=== PATIENT | female | born 1965 | race Caucasian/White ===

== ENCOUNTER → 2017-10-24 | Outpatient (CLI) | payer OTHER ==
[~2017-10-24] MED LIST: ALLEGRA-D 24 H1 EACH PO; Duoneb 2.5-0.5 Mg/3 INH; FLONASE 0.05%50 MCG NASAL; FLOVENT HFA 4444 MCG INH; LEVAQUIN 500 M500 M2 PO; LEVAQUIN 500 M500 MG PO; MEDROLDOSEPACK PO; MUCINEX1200 MG PO; NOHOMEMEDICATIONS; PREDNISONE 10 M10 MG PO; PREDNISONE50 MG PO; PROAIR HFA8.5 GM IH; TESSALON200 MG PO; VENTOLIN HFA 1818 GM INH
== END ==
LOC: M.RAD 14:43
DX: R05 Cough (principal); R06.2 Wheezing; I48.91 Unspecified atrial fibrillation

== ENCOUNTER 2017-11-19 06:28 | Emergency (ER) | payer OTHER ==
[~2017-11-19] VITALS: Ht 165.1 cm; Wt 49.9 kg
[~2017-11-19 06:28] MED LIST changes: -ALLEGRA-D 24 H1 EACH PO; -Duoneb 2.5-0.5 Mg/3 INH; -FLONASE 0.05%50 MCG NASAL; -FLOVENT HFA 4444 MCG INH; -LEVAQUIN 500 M500 M2 PO; -MEDROLDOSEPACK PO; -MUCINEX1200 MG PO; -PREDNISONE 10 M10 MG PO; -VENTOLIN HFA 1818 GM INH
[2017-11-19] MEDS ORDERED: FLONASE 0.05%50 MCG NASAL (06:37)
[2017-11-19] MEDS ORDERED: ALLEGRA-D 24 H1 EACH PO (06:37)
[2017-11-19 07:55] LABS: ABSOLUTE BASOPHILS 0.1 thou/uL (0.0-0.2); ABSOLUTE EOSINOPHILS 0.7 thou/uL (0.0-0.7); ABSOLUTE LYMPHOCYTES 1.5 thou/uL (0.8-5.3); ABSOLUTE MONOCYTES 0.5 thou/uL (0.0-1.2); ABSOLUTE NEUTROPHILS 6.5 thou/uL (1.6-8.1); BASOPHILS 0.7 %; EOSINOPHILS 7.2 %; HEMATOCRIT 40.8 % (37.0-47.0); HEMOGLOBIN 13.4 gm/dL (12.0-15.0); LYMPHOCYTES 16.4 %; MCH 29.7 pg (26.0-34.0); MCHC 32.8 g/dL (28.0-37.0); MCV 90.3 fL (80.0-100.0); MONOCYTES 5.5 %; MPV 8.4 fl. (7.2-11.1); NUCLEATED RBCS 0 /100WBC; PLATELET COUNT* 223 thou/uL (150-400); POLYS 70.2 %; RBC 4.51 mil/uL (4.20-5.00); RDW-CV 14.6 % (10.5-14.5); WBC 9.2 thou/uL (4.0-11.0)
[2017-11-19] MEDS ORDERED: MEDROLDOSEPACK PO (08:18)
[2017-11-19 08:29] VITALS: BP 94/58
== END 2017-11-19 08:30 | disposition home or self-care (01) ==
LOC: M.ERS 06:28
PROVIDERS: Emergency Medicine
DX: J42 Unspecified chronic bronchitis (principal); F17.210 Nicotine dependence, cigarettes, uncomplicated; Z88.5 Allergy status to narcotic agent

== ENCOUNTER 2017-12-16 05:44 | Emergency (ER) | payer OTHER ==
[~2017-12-16] VITALS: Ht 165.1 cm; Wt 49.9 kg
[~2017-12-16 05:44] MED LIST changes: +ALLEGRA-D 24 H1 EACH PO; +FLONASE 0.05%50 MCG NASAL; +MEDROLDOSEPACK PO
[2017-12-16] MEDS ORDERED: Duoneb 2.5-0.5 Mg/3 INH (05:53)
[2017-12-16] MEDS ORDERED: PREDNISONE50 MG PO (07:07)
[2017-12-16 07:43] VITALS: BP 122/62
== END 2017-12-16 07:44 | disposition home or self-care (01) ==
LOC: M.ERS 05:44
DX: J44.1 Chronic obstructive pulmonary disease with (acute) exacerbation (principal); F17.210 Nicotine dependence, cigarettes, uncomplicated; Z88.5 Allergy status to narcotic agent

== ENCOUNTER 2018-02-10 03:15 | Inpatient (IN) | payer OTHER ==
[~2018-02-10] VITALS: Ht 165.1 cm; Wt 51.7 kg
[~2018-02-10 03:15] MED LIST changes: +Duoneb 2.5-0.5 Mg/3 INH
[2018-02-10 03:18] VITALS: BP 127/80
[2018-02-10] MEDS ORDERED: MUCINEX1200 MG PO (03:23)
[2018-02-10 04:09] LABS: ABSOLUTE BASOPHILS 0.1 thou/uL (0.0-0.2); ABSOLUTE EOSINOPHILS 0.8 thou/uL (0.0-0.7); ABSOLUTE LYMPHOCYTES 4.3 thou/uL (0.8-5.3); ABSOLUTE MONOCYTES 0.8 thou/uL (0.0-1.2); ABSOLUTE NEUTROPHILS 5.9 thou/uL (1.6-8.1); BASOPHILS 0.8 %; EOSINOPHILS 6.5 %; HEMATOCRIT 44.2 % (37.0-47.0); HEMOGLOBIN 14.6 gm/dL (12.0-15.0); LYMPHOCYTES 36.1 %; MCH 30.1 pg (26.0-34.0); MCV 91.3 fL (80.0-100.0); MONOCYTES 6.8 %; MPV 8.1 fl. (7.2-11.1); NUCLEATED RBCS 0 /100WBC; PLATELET COUNT* 269 thou/uL (150-400); POLYS 49.8 %; RBC 4.84 mil/uL (4.20-5.00); RDW-CV 15.5 % (10.5-14.5); WBC 11.9 thou/uL (4.0-11.0)
[2018-02-10 04:29] LABS: ANION GAP 7 mmol/L (7-16); BUN 11 mg/dL (7-18); CALCIUM 8.4 mg/dL (8.5-10.1); CHLORIDE 105 mmol/L (98-107); CO2 26 mmol/L (21-32); CREATININE 0.7 mg/dL (0.6-1.3); GLUCOSE 109 mg/dL (70-99); POTASSIUM 3.6 mmol/L (3.5-5.1); SODIUM 138 mmol/L (136-145)
[2018-02-10 04:40] LABS: ALBUMIN 3.9 g/dL (3.4-5.0); ALKALINE PHOSPHATASE 72 U/L (46-116); NT-PRO BRAIN NAT PEPTIDE 35 pg/mL (<300); SGOT 16 U/L (15-37); SGPT 17 U/L (30-65); TOTAL BILIRUBIN 0.3 mg/dL (<0.1-1.0); TOTAL PROTEIN 8.3 g/dL (6.4-8.2); TROPONIN-I LEVEL <0.06 ng/mL (<0.06)
[2018-02-10 05:02] LABS: BE -2.2 mmol/L (-2 to +3); HCO3 23.5 mmol/L (22.0-26.0); PCO2 43.4 mmHg (35.0-45.0); pH 7.351 (7.340-7.450)
[2018-02-10 05:05] LABS: PO2 134.4 mmHg (75.0-100.0)
[2018-02-10 05:28] VITALS: BP 124/73
[2018-02-10 05:30] VITALS: BP 109/67
[2018-02-10 08:00] VITALS: BP 117/62
--- NOTE | 2018-02-10 10:31 | EKG ---
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: : 1965 Requested By: Natali Christina Order Number: [id number] MD: Onesimo Mccoy Measurements Intervals [place] Rate: 92 P: 85 [place]: 207 QRS: 93 QRSD: 129 T: 35 QT: 360 QTc: 446 Interpretive Statements Sinus rhythm Prolonged [place] interval Biatrial enlargement Nonspecific intraventricular conduction delay Anterior infarct, old No previous ECG available for comparison Electronically Signed On 02-10-2018 10:30:52 CDT by Onesimo Mccoy [email or web address] <ELECTRONICALLY SIGNED> By: Onesimo Mccoy MD, [facility] 02/10/18 1030 0410 0410 Onesimo Mccoy MD, [facility] /EPI
[2018-02-10 12:00] VITALS: BP 107/58
[2018-02-10 20:00] VITALS: BP 102/58
[2018-02-11] VITALS: BP 108/61
[2018-02-11 04:00] VITALS: BP 106/63
[2018-02-11 04:58] LABS: HEMATOCRIT 38.3 % (37.0-47.0); MCH 30.1 pg (26.0-34.0); MCV 91.3 fL (80.0-100.0); MPV 8.2 fl. (7.2-11.1); RBC 4.19 mil/uL (4.20-5.00); WBC 11.8 thou/uL (4.0-11.0)
[2018-02-11 05:15] LABS: HEMOGLOBIN 12.6 gm/dL (12.0-15.0)
[2018-02-11 05:29] LABS: CALCIUM 9.1 mg/dL (8.5-10.1); CREATININE 0.6 mg/dL (0.6-1.3); MAGNESIUM 1.9 mg/dL (1.8-2.4)
[2018-02-11 08:00] VITALS: BP 106/58
[2018-02-11] MEDS ORDERED: FLOVENT HFA 4444 MCG INH (08:45)
[2018-02-11] MEDS ORDERED: VENTOLIN HFA 1818 GM INH (08:45)
[2018-02-11] MEDS ORDERED: PREDNISONE 10 M10 MG PO (08:45)
[2018-02-11] MEDS ORDERED: LEVAQUIN 500 M500 M2 PO (08:45)
[2018-02-11 12:27] VITALS: BP 106/58
[2018-02-11 12:36] VITALS: BP 106/58
== END 2018-02-11 14:20 | disposition home or self-care (01) | DRG 189 ==
LOC: M.ERS 03:15 → M.TBA-ER 04:13 → M.2W 04:13
PROVIDERS: Emergency Medicine; Internal Medicine; ADMIT Family Medicine
PROC: 5A09357 Assistance with Respiratory Ventilation, Less than 24 Consecutive Hours, Continuous Positive Airway Pressure (ICD-10-PCS; principal; 2018-02-10)
DX: J96.01 Acute respiratory failure with hypoxia (principal); J44.1 Chronic obstructive pulmonary disease with (acute) exacerbation; R65.10 Systemic inflammatory response syndrome (SIRS) of non-infectious origin without acute organ dysfunction; Z88.6 Allergy status to analgesic agent; F17.210 Nicotine dependence, cigarettes, uncomplicated; Z79.899 Other long term (current) drug therapy

== ENCOUNTER 2018-02-14 17:28 | Emergency (ER) | payer OTHER ==
[~2018-02-14] VITALS: Ht 165.1 cm; Wt 52.2 kg
[~2018-02-14 17:28] MED LIST changes: +FLOVENT HFA 4444 MCG INH; +LEVAQUIN 500 M500 M2 PO; +MUCINEX1200 MG PO; +PREDNISONE 10 M10 MG PO; +VENTOLIN HFA 1818 GM INH
[2018-02-14 18:03] LABS: HEMATOCRIT 44.3 % (37.0-47.0); HEMOGLOBIN 14.8 gm/dL (12.0-15.0); MCHC 33.4 g/dL (28.0-37.0); MCV 89.7 fL (80.0-100.0); MPV 7.8 fl. (7.2-11.1); NUCLEATED RBCS 0 /100WBC; PLATELET COUNT* 280 thou/uL (150-400); RBC 4.94 mil/uL (4.20-5.00); RDW-CV 15.6 % (10.5-14.5); WBC 10.5 thou/uL (4.0-11.0)
[2018-02-14 18:16] LABS: ANION GAP 4 mmol/L (7-16); BUN 20 mg/dL (7-18); CALCIUM 8.2 mg/dL (8.5-10.1); CHLORIDE 104 mmol/L (98-107); CO2 29 mmol/L (21-32); CREATININE 0.8 mg/dL (0.6-1.3); GLUCOSE 123 mg/dL (70-99); POTASSIUM 4.2 mmol/L (3.5-5.1); SODIUM 137 mmol/L (136-145)
[2018-02-14 18:27] LABS: ABSOLUTE LYMPHOCYTES 0.8 thou/uL (0.8-5.3); ABSOLUTE MONOCYTES 0.7 thou/uL (0.0-1.2); ABSOLUTE NEUTROPHILS 8.9 thou/uL (1.6-8.1)
[2018-02-14 18:28] LABS: PLATELET ESTIMATE ADEQUATE
[2018-02-14 18:31] LABS: ALBUMIN 3.4 g/dL (3.4-5.0); ALKALINE PHOSPHATASE 57 U/L (46-116); LIPASE 108 U/L (73-393); NT-PRO BRAIN NAT PEPTIDE 389 pg/mL (<300); SGOT 9 U/L (15-37); SGPT 21 U/L (30-65); TOTAL BILIRUBIN 0.3 mg/dL (<0.1-1.0); TOTAL PROTEIN 7.2 g/dL (6.4-8.2); TROPONIN-I LEVEL <0.06 ng/mL (<0.06)
[2018-02-14 20:32] VITALS: BP 113/73
--- NOTE | 2018-02-15 14:39 | EKG ---
[place] [address] ELECTROCARDIOGRAM REPORT Name: JENNIE COLEMAN Room: [facility]#: [id number] Admission: 02/14/18 Attend Phys: Discharge: 02/14/18 Date of : 69 Report #: [id number] THIS REPORT FOR: //name// [facility] ED Test Date: 2018-02-14 Test Time: 19:49:41 Pat Name: JENNIE COLEMAN Department: Room: Gender: F Power Builder Developer: JOSIE : 1965 Requested By: Rahat Alexis Order Number: [id number] MD: Alcides Velazquez Measurements Intervals [place] Rate: 61 P: 77 [place]: 186 QRS: 85 QRSD: 88 T: 66 QT: 394 QTc: 397 Interpretive Statements Sinus rhythm Anterior infarct, old Compared to ECG 02/10/2018 04:10:10 First degree AV block no longer present Atrial abnormality no longer present Intraventricular conduction delay no longer present Myocardial infarct finding still present Electronically Signed On 02-15-2018 14:39:32 CDT by Alcides Velazquez [email or web address] <ELECTRONICALLY SIGNED> By: Alcides Velazquez MD, [facility] 02/15/18 1439 48 48 Alcides Velazquez MD, [facility] /EPI
--- NOTE | 2018-02-15 14:39 | EKG ---
[place] [address] ELECTROCARDIOGRAM REPORT Name: JENNIE COLEMAN Room: [facility]#: [id number] Admission: 02/14/18 Attend Phys: Discharge: 02/14/18 Date of : 69 Report #: [id number] THIS REPORT FOR: //name// [facility] ED Test Date: 2018-02-14 Test Time: 17:32:32 Pat Name: JENNIE COLEMAN Department: Room: Gender: F Fire Lieutenant: SAMUEL : 1965 Requested By: Chase Patel Order Number: [id number] MD: Alcides Velazquez Measurements Intervals [place] Rate: 83 P: [place]: QRS: 84 QRSD: 82 T: 65 QT: 350 QTc: 412 Interpretive Statements sinus rhythm Anterior infarct, old probable right atrial enlargement possible anterior scar Electronically Signed On 02-15-2018 14:39:10 CDT by Alcides Velazquez [email or web address] <ELECTRONICALLY SIGNED> By: Alcides Velazquez MD, [facility] 02/15/18 1439 1732 1732 Alcides Velazquez MD, [facility] /EPI
== END 2018-02-14 20:30 | disposition home or self-care (01) ==
LOC: M.ERS 17:28
PROVIDERS: Emergency Medicine Emergency Medical Services
DX: R00.2 Palpitations (principal); J44.9 Chronic obstructive pulmonary disease, unspecified; F17.210 Nicotine dependence, cigarettes, uncomplicated; Z98.890 Other specified postprocedural states; Z88.5 Allergy status to narcotic agent

== ENCOUNTER 2018-05-14 03:32 | Inpatient (IN) | payer OTHER ==
[~2018-05-14] VITALS: Ht 165.1 cm; Wt 53.5 kg
[2018-05-14 03:35] VITALS: BP 139/47
--- NOTE | 2018-05-14 03:45 | NUR ---
RT HERE FOR BREATHING TREATMENT
--- NOTE | 2018-05-14 04:19 | NUR ---
#2 BREATHING TREATMENT IN PROGRESS
[2018-05-14 06:11] LABS: HEMATOCRIT 42.9 % (37.0-47.0); HEMOGLOBIN 13.9 gm/dL (12.0-15.0); MCH 30.2 pg (26.0-34.0); MCHC 32.5 g/dL (28.0-37.0); MPV 8.6 fl. (7.2-11.1); NUCLEATED RBCS 0 /100WBC; PLATELET COUNT* 221 thou/uL (150-400); RBC 4.61 mil/uL (4.20-5.00); RDW-CV 13.8 % (10.5-14.5); WBC 12.9 thou/uL (4.0-11.0)
[2018-05-14 06:41] LABS: ALBUMIN 3.8 g/dL (3.4-5.0); CALCIUM 8.7 mg/dL (8.5-10.1); CREATININE 0.7 mg/dL (0.6-1.3); POTASSIUM 3.9 mmol/L (3.5-5.1); TOTAL BILIRUBIN 0.2 mg/dL (<0.1-1.0); TOTAL PROTEIN 7.6 g/dL (6.4-8.2)
[2018-05-14 07:03] LABS: ABSOLUTE EOSINOPHILS 0.1 thou/uL (0.0-0.7); ABSOLUTE LYMPHOCYTES 0.8 thou/uL (0.8-5.3); ABSOLUTE MONOCYTES 0.3 thou/uL (0.0-1.2); ABSOLUTE NEUTROPHILS 11.7 thou/uL (1.6-8.1); ANISOCYTOSIS 1+; PLATELET ESTIMATE ADEQUATE; POIKILOCYTOSIS 1+
[2018-05-14 07:45] VITALS: BP 95/60
--- NOTE | 2018-05-14 09:42 | NUR ---
ASSUMED PT CARE @ 0805. PT ORIENTED TO ROOM. VS STABLE. OXYGEN @ 3L/NC. PT DENIES PAIN. FALL CONTRACT SIGNED. NURSING TO CONTINUE TO MONITOR.
[2018-05-14 10:00] VITALS: BP 102/52
--- NOTE | 2018-05-14 11:43 | NUR ---
SW met pt to complete initial assessment, introduce self, and SW role. Pt alert, oriented, pleasant. Pt lives at home with her ; her is a deck supervisor and is often away traveling for work. Pt said she sometimes goes with him but also stays and watches her grandchildren. Pt is independent and active, she takes care of chickens and a dog. Pt has a nebulizer through [facility] but does not have oxygen at home. Pt has supportive sister and helpful neighbors. Pt does not have hx of or SNF. SW to continue to follow to assist with safe dc planning.
[2018-05-14 12:48] LABS: INFLUENZA A ANTIGEN None Detected (None Detect); INFLUENZA B ANTIGEN None Detected (None Detect)
[2018-05-14 15:00] LABS: BE 0.4 mmol/L (-2 to +3); HCO3 24.6 mmol/L (22.0-26.0); PCO2 38.4 mmHg (35.0-45.0); PO2 81.8 mmHg (75.0-100.0); pH 7.425 (7.340-7.450)
--- NOTE | 2018-05-14 15:28 | EKG ---
[place] [address] ELECTROCARDIOGRAM REPORT Name: JENNIE COLEMAN Room: [address] ADM IN M.R.#: [id number] Admission: 05/14/18 Attend Phys: Riley Abad MD Discharge: Date of : 69 Report #: [id number] THIS REPORT FOR: //name// [facility] ED Test Date: 2018-05-14 Test Time: 03:40:43 Pat Name: JENNIE COLEMAN Department: Room: [facility] Gender: F Supervisor Furnace Room: AMILCAR : 1965 Requested By: Natali Christina Order Number: [id number] MD: Hero Santizo Measurements Intervals [place] Rate: 90 P: 76 [place]: 219 QRS: 95 QRSD: 96 T: 51 QT: 369 QTc: 452 Interpretive Statements Sinus rhythm Prolonged [place] interval Biatrial enlargement Borderline right axis deviation Probable anteroseptal infarct, old Baseline wander in lead(s) V6 Compared to ECG 02/14/2018 19:49:41 First degree AV block now present Atrial abnormality now present Myocardial infarct finding still present Electronically Signed On 05-14-2018 15:28:07 LOBBY ATTENDANT by Hero Santizo [email or web address] <ELECTRONICALLY SIGNED> By: Hero Santizo MD, FACC 05/14/18 1528 0340 Hero Santizo MD, FAC /EPI
[2018-05-14 16:05] VITALS: BP 135/71
--- NOTE | 2018-05-14 19:45 | NUR ---
PT ALERT AND ORIENTED X 4. RECEIVED IVF BOLUS OF 1700MLS. OXYGEN @ 3 L/NC. LUNGS COARSE. NON-PRODUCTIVE COUGN. FLU SWAB OBTAINED AND SENT TO LAB. PT DENIES PAIN AND NAUSEA. HOURLY ROUNDS MAINTAINED. VS STABLE. UP INDEPENDENTLY WITH BRP. WILL USE CALL LIGHT FOR ASSISTANCE. CALL LIGHT WITHIN REACH.
[2018-05-15 00:03] VITALS: BP 119/71
[2018-05-15 04:19] LABS: HEMATOCRIT 39.4 % (37.0-47.0); MCH 30.6 pg (26.0-34.0); MCV 92.7 fL (80.0-100.0); MPV 8.6 fl. (7.2-11.1); RBC 4.24 mil/uL (4.20-5.00); WBC 13.8 thou/uL (4.0-11.0)
[2018-05-15 04:38] LABS: CALCIUM 8.7 mg/dL (8.5-10.1); CREATININE 0.7 mg/dL (0.6-1.3); MAGNESIUM 1.8 mg/dL (1.8-2.4); PHOSPHORUS* 4.8 mg/dL (2.5-4.9); POTASSIUM 4.1 mmol/L (3.5-5.1)
--- NOTE | 2018-05-15 06:29 | NUR ---
PATIENT SLEPT MOST OF THE NIGHT. IV REMAINS SALINE LOCKED. PATIENT IS ON OXYGEN AT 1L PER NASAL CANNULA. PATIENT HAD NO COMPLAINTS OF PAIN. WILL CONTINUE TO MONITOR.
[2018-05-15 08:05] VITALS: BP 102/48
[2018-05-15 17:06] VITALS: BP 101/62
--- NOTE | 2018-05-15 18:03 | NUR ---
PATIENT RESTING IN BED. PATIENT IS UP AD MICHOACANO IN ROOM. PATIENT DENIES ANY PAIN. PATIENT DENIES ANY TROUBLE BREATHING. OXYGEN IS ON AT 1L/NC. PATIENT HAS GOOD APPETITE. PATIENT DENIES ANY NEEDS AT THIS TIME. CALL LIGHT WITHIN REACH. WILL CONTINUE TO MONITOR.
[2018-05-15 23:56] VITALS: BP 131/80
[2018-05-16 03:49] LABS: HEMATOCRIT 40.9 % (37.0-47.0); HEMOGLOBIN 13.3 gm/dL (12.0-15.0); MCH 30.4 pg (26.0-34.0); MCHC 32.5 g/dL (28.0-37.0); MCV 93.5 fL (80.0-100.0); MPV 8.7 fl. (7.2-11.1); RBC 4.37 mil/uL (4.20-5.00); RDW-CV 13.8 % (10.5-14.5); WBC 11.2 thou/uL (4.0-11.0)
[2018-05-16 04:04] LABS: CALCIUM 8.8 mg/dL (8.5-10.1); CREATININE 0.6 mg/dL (0.6-1.3); POTASSIUM 4.7 mmol/L (3.5-5.1)
--- NOTE | 2018-05-16 05:52 | NUR ---
PATIENT SLEPT WELL DURING THIS SHIFT. PT UP AD MICHOACANO TO BATHROOM. PT IS ON ROOM AIR WITH SATS AT 97%. PT DENIES NEEDS AT THIS TIME. FREQUENTLY USED ITEMS AND CALL LIGHT WITHIN REACH. SIDERAILS UPX2. WILL CONTINUE TO MONITOR.
[2018-05-16 08:10] VITALS: BP 119/69
[2018-05-16] MEDS ORDERED: PREDNISONE 10 M10 M1 PO (10:18)
[2018-05-16] MEDS ORDERED: FLOVENT HFA 4444 MCG INH (10:18)
[2018-05-16] MEDS ORDERED: IPRAT-ALBUT 0.5-3 ML INH (10:18)
[2018-05-16] MEDS ORDERED: CIPROFLOXACIN500 MG PO (10:18)
[2018-05-16] MEDS ORDERED: NICOTINE TRANSD21 M1 TRANSDERM (10:18)
[2018-05-16] MEDS ORDERED: SINGULAIR 10 MG10 M1 PO (10:19)
[2018-05-16 10:24] VITALS: BP 119/69
--- NOTE | 2018-05-16 11:20 | NUR ---
PATIENT DISCHARGED TO HOME. DISCHARGE PAPERS REVIEWED AND SIGNED. PRESCRIPTIONS AND INFORMATION SHEETS GIVEN. IV REMOVED. PATIENT DENIES ANY FURTHER NEEDS. PATIENT TAKEN AMBULATORY TO EXIT. LEFT WITH SISTER.
== END 2018-05-16 11:20 | disposition home or self-care (01) | DRG 871 ==
LOC: M.ERS 03:32 → M.3W 04:58 → M.TBA-ER 04:58 → M.3W 07:52
PROVIDERS: Emergency Medicine; ADMIT Internal Medicine
DX: A41.9 Sepsis, unspecified organism (principal); J96.21 Acute and chronic respiratory failure with hypoxia; J44.1 Chronic obstructive pulmonary disease with (acute) exacerbation; R04.0 Epistaxis; I95.89 Other hypotension; F17.210 Nicotine dependence, cigarettes, uncomplicated; Z87.81 Personal history of (healed) traumatic fracture; Z79.51 Long term (current) use of inhaled steroids; Z79.899 Other long term (current) drug therapy; Z88.5 Allergy status to narcotic agent; Z28.21 Immunization not carried out because of patient refusal

== ENCOUNTER → 2018-05-21 | Outpatient (CLI) | payer OTHER ==
[~2018-05-21] MED LIST changes: +CIPROFLOXACIN500 MG PO; +IPRAT-ALBUT 0.5-3 ML INH; +NICOTINE TRANSD21 M1 TRANSDERM; +PREDNISONE 10 M10 M1 PO; +SINGULAIR 10 MG10 M1 PO
--- NOTE | 2018-05-28 07:54 | PF ---
[address] [address] PULMONARY FUNCTION REPORT Name: JENNIE COLEMAN Handy Room: [facility]#: [id number] Admission: 05/21/18 Attend Phys: ROBI Magaña Discharge: Date of : 69 Report #: [id number] THIS REPORT FOR: //name// CC: Jie Santo DATE OF SERVICE: 05/21/2018 PRIMARY CARE PHYSICIAN: ROBI Joshi Spirometry demonstrates moderate obstructive defect. FEV1 is 2.2, FVC is 4.2 liters, ratio is moderately diminished at 53%. FEV1 is 77% of predicted. Mid flow rates are diminished to 23% of predicted and 60% of predicted. Lung volumes performed via plethysmography show moderate hyperinflation with increased RV to TLC and the RV is 145% of predicted. RV to TLC is down to 31%. TLC is elevated at 122% of predicted and resistance is upper limits of normal. Diffusion is down to 63% when corrected for alveolar volume. IMPRESSION: Abnormalities suggest moderate obstructive airways disease with no significant bronchodilator response. Hyperinflation is noted with increased residual volume and there is a diffusion defect with a mild decrease in diffusion to 63% of predicted. <ELECTRONICALLY SIGNED> By: Shane Montano MD 05/28/18 0754 1350 1845Asteven Montano MD /ladonna
== END ==
LOC: M.PUL 09:28
DX: R91.8 Other nonspecific abnormal finding of lung field (principal); R06.02 Shortness of breath; R06.2 Wheezing

== ENCOUNTER 2020-07-07 21:35 | Inpatient (IN) | payer OTHER ==
[~2020-07-07] VITALS: Ht 165.1 cm; Wt 54.4 kg
[2020-07-07 21:48] VITALS: BP 135/66
[2020-07-07 22:32] LABS: ABSOLUTE BASOPHILS 0.2 thou/uL (0.0-0.2); ABSOLUTE LYMPHOCYTES 3.2 thou/uL (0.8-5.3); ABSOLUTE MONOCYTES 0.6 thou/uL (0.0-1.2); ABSOLUTE NEUTROPHILS 7.3 thou/uL (1.6-8.1); BASOPHILS 1.3 %; EOSINOPHILS 8.4 %; HEMATOCRIT 46.4 % (37.0-47.0); HEMOGLOBIN 15.3 gm/dL (12.0-15.0); MCH 29.7 pg (26.0-34.0); MCHC 32.9 g/dL (28.0-37.0); MCV 90.4 fL (80.0-100.0); MONOCYTES 5.1 %; MPV 7.9 fl. (7.2-11.1); NUCLEATED RBCS 0 /100WBC; PLATELET COUNT* 268 thou/uL (150-400); POLYS 59.2 %; RBC 5.14 mil/uL (4.20-5.00); RDW-CV 15.2 % (10.5-14.5); WBC 12.4 thou/uL (4.0-11.0)
[2020-07-07 22:37] LABS: CALCIUM 9.3 mg/dL (8.5-10.1); CREATININE 0.7 mg/dL (0.6-1.3); POTASSIUM 3.7 mmol/L (3.5-5.1)
[2020-07-07 22:41] LABS: TOTAL BILIRUBIN 0.4 mg/dL (<0.1-1.0); TOTAL PROTEIN 8.1 g/dL (6.4-8.2)
[2020-07-08] VITALS (7 sets, daily range): BP systolic 98–126; BP diastolic 56–68
[2020-07-08] MEDS ORDERED: PULMICORT0.5 MG/2 M INH (00:15)
[2020-07-08] MEDS ORDERED: ALBUTEROL2.5 MG/31 INH (00:15)
--- NOTE | 2020-07-08 11:20 | EKG ---
[place] [address] ELECTROCARDIOGRAM REPORT Name: JENNIE COLEMAN Room: [address]R.#: [id number] Admission: 07/08/20 Attend Phys: Vinay Hendricks, Discharge: Date of : 69 Date of Service: 07/07/202200 Report #: [id number] THIS REPORT FOR: //name// [facility] ED Test Date: 2020-07-07 Test Time: 22:01:26 Pat Name: JENNIE COLEMAN Department: Room: [facility] Gender: F Tour Director: SIRENA WADEB: 1965 Requested By: Natali Christina Order Number: [id number] MD: Onesimo Mccoy Measurements Intervals [place] Rate: 102 P: 87 [place]: 215 QRS: 85 QRSD: 99 T: 55 QT: 329 QTc: 429 Interpretive Statements Sinus tachycardia Prolonged [place] interval Biatrial enlargement Anteroseptal infarct, age indeterminate Compared to ECG 05/14/2018 03:40:43 Sinus rhythm no longer present Myocardial infarct finding still present Electronically Signed On 07-08-2020 11:19:56 EMBOSSING CALENDER OPERATOR by Onesimo Mccoy [email or web address] <ELECTRONICALLY SIGNED> By: Onesimo Mccoy MD, FACC 07/08/20 1119 00 00 Onesimo Mccoy MD, FAC /EPI
[2020-07-08 14:28] LABS: HEMATOCRIT 43.4 % (37.0-47.0); HEMOGLOBIN 14.5 gm/dL (12.0-15.0); MCHC 33.3 g/dL (28.0-37.0); MPV 7.9 fl. (7.2-11.1); NUCLEATED RBCS 0 /100WBC; PLATELET COUNT* 277 thou/uL (150-400); RBC 4.82 mil/uL (4.20-5.00); RDW-CV 15.3 % (10.5-14.5); WBC 9.4 thou/uL (4.0-11.0)
[2020-07-08 14:37] LABS: APTT 26.2 Seconds (25.0-31.3); INR 1.1; PROTIME 11.4 Seconds (9.20-11.50)
[2020-07-08 15:06] LABS: ALBUMIN 3.7 g/dL (3.4-5.0); CREATININE 0.8 mg/dL (0.6-1.3); POTASSIUM 4.3 mmol/L (3.5-5.1); TOTAL BILIRUBIN 0.2 mg/dL (<0.1-1.0); TOTAL PROTEIN 7.9 g/dL (6.4-8.2)
[2020-07-08 15:08] LABS: ABSOLUTE BASOPHILS 0.1 thou/uL (0.0-0.2); ABSOLUTE LYMPHOCYTES 1.3 thou/uL (0.8-5.3); PLATELET ESTIMATE ADEQUATE
[2020-07-09 07:45] VITALS: BP 113/58
[2020-07-09 16:05] VITALS: BP 110/57
[2020-07-09 20:30] VITALS: BP 106/59
[2020-07-10 04:15] LABS: HEMATOCRIT 36.4 % (37.0-47.0); MCH 29.9 pg (26.0-34.0); MCHC 33.2 g/dL (28.0-37.0); MCV 89.9 fL (80.0-100.0); RBC 4.05 mil/uL (4.20-5.00); RDW-CV 15.5 % (10.5-14.5); WBC 13.8 thou/uL (4.0-11.0)
[2020-07-10 04:27] LABS: ALBUMIN 3.1 g/dL (3.4-5.0); CALCIUM 8.3 mg/dL (8.5-10.1); CREATININE 0.7 mg/dL (0.6-1.3); MAGNESIUM 1.9 mg/dL (1.8-2.4); POTASSIUM 3.8 mmol/L (3.5-5.1); TOTAL BILIRUBIN 0.2 mg/dL (<0.1-1.0); TOTAL PROTEIN 6.4 g/dL (6.4-8.2)
[2020-07-10 04:43] LABS: HEMOGLOBIN 12.1 gm/dL (12.0-15.0)
[2020-07-10 07:50] VITALS: BP 122/69
[2020-07-10 10:03] VITALS: BP 122/69
[2020-07-10 12:08] VITALS: BP 122/69
--- NOTE | 2020-07-11 19:07 | CON ---
[address] [address] CONSULTATION Name: JENNIE COLEMAN Handy Room: [address] IN M.R.#: [id number] Admission: 07/09/20 Attend Phys: Vinay Hendricks MD Discharge: 07/10/20 Date of : 69 Report #: [id number] THIS REPORT FOR: cc: Jie Santo Melanie A. FNP ~ Orestes Del Rosario MD DATE OF SERVICE: 07/08/2020 REQUESTING PHYSICIAN: Dr. Hernandez. INDICATION FOR CONSULTATION: COPD exacerbation. HISTORY OF PRESENT ILLNESS: This is a 54-year-old female, past medical history includes a history of COPD. The patient follows with a muffler installer, Dr. Preston out of [facility]. She is an active smoker. The patient was recently admitted to an outside institution with COPD exacerbation, states that she was treated with corticosteroids as well as azithromycin. The patient was only discharged 2 weeks ago. The patient now reports having had a significant increase in shortness of breath. She has also been coughing. There is only scanty sputum production. She has been wheezing. There is no chest pain. There are no upper respiratory complaints. There are no fever or chills. There is no swelling of lower extremities or calf pain. The patient answers to the negative for 12 questions for review of systems except as mentioned above. The patient, however, continues to have significant shortness of breath at rest and continues to wheeze. The patient, however, is maintaining O2 saturation without supplemental oxygen. PAST MEDICAL HISTORY: COPD, bronchial asthma is also mentioned in the record, bilateral breast lumpectomy both reported to be benign, tubal ligation, left elbow fracture, Baltazar's thyroiditis. SOCIAL HISTORY: Extensive history of smoking. She still smokes, has been smoking since the age of 18. No known history of heavy alcohol use or illegal drug use. FAMILY HISTORY: Father had prostate cancer, also history of hypertension and heart disease in the family. ALLERGIES: REPORTED TO BE ALLERGIC TO CODEINE. PHYSICAL EXAMINATION: GENERAL: She is alert, awake and oriented, does appear to be short of breath at rest. VITAL SIGNS: Has a pulse of 95 and a blood pressure of 107/61[place] [address] CONSULTATION Name: JENNIE COLEMAN Room: [address]#: [id number] Admission: 07/09/20 Attend Phys: Vinay Hendricks MD Discharge: 07/10/20 Date of : 69 Report #: [id number] saturating 93%. She is not on supplemental oxygen. Respiratory rate is only 17-18, but she appears to be short of breath at rest. She is also audibly wheezing. She is afebrile with a temperature of 36.6. HEENT: Head is normocephalic and atraumatic. Pupils are equal and reactive. There is no throat erythema. NECK: Does not show raised JVP, asymmetry, mass or lymph nodes. CHEST: Symmetrical expansion on inspection and palpation. On auscultation, breath sounds are significantly decreased. Expirations are prolonged. There are significant inspiratory as well as expiratory wheezes bilaterally. There are expiratory wheezes bilaterally. HEART: Regular. There is no murmur. ABDOMEN: Soft and nontender. EXTREMITIES: Lower extremities show no edema and no calf tenderness. SKIN: Dry and intact. NEUROLOGICAL: Moves all extremities bilaterally equally and spontaneously with no focal deficit identified. LABORATORY DATA: The patient's chest x-ray does show hyperinflation. There is also a lung nodule, which has been present at least for the last 3 years and has been calcified in the right lung. The patient's lab work is in [facility]. COVID-19 antigen is negative. ASSESSMENT AND PLAN: 1. Acute exacerbation of chronic obstructive pulmonary disease. The primary etiology of the patient's decompensation appears to be bronchospasm. Primarily, I would treat this with corticosteroids and I fully agree with Solu-Medrol as ordered by Dr. Hernandez. Considering the patient remains bronchospastic and has also recently been treated with steroids at another hospital, I did go ahead and increase the dose. We will also continue with DuoNeb. I also agree with covering for the possibility of bacterial infection with doxycycline. 2. Evaluation for thromboembolic phenomenon. I obtained a D-dimer, which is not elevated. 3. Active smoker. Strongly recommend smoking cessation. 4. Deep vein thrombosis prophylaxis. The patient is on Lovenox. Thanks for this consultation. <ELECTRONICALLY SIGNED> By: Orestes Del Rosario MD 07/11/207 20 2326Aminal Del Rosario MD /nt
== END 2020-07-10 12:09 | disposition home or self-care (01) | DRG 189 ==
LOC: M.ERS 21:35 → M.TBA-ER 07-08 01:18 → M.2W 07-08 10:19
PROVIDERS: Emergency Medicine; Internal Medicine; Internal Medicine Critical Care Medicine; ADMIT Internal Medicine; ATTEND Internal Medicine
DX: J96.01 Acute respiratory failure with hypoxia (principal); J44.1 Chronic obstructive pulmonary disease with (acute) exacerbation; R65.10 Systemic inflammatory response syndrome (SIRS) of non-infectious origin without acute organ dysfunction; F17.210 Nicotine dependence, cigarettes, uncomplicated; Z20.822 Contact with and (suspected) exposure to COVID-19; Z88.5 Allergy status to narcotic agent; Z79.899 Other long term (current) drug therapy